=== PATIENT | female | born 1990 | race Caucasian/White ===

== ENCOUNTER 2016-09-15 10:35 | Inpatient (IN) | payer BC ==
[~2016-09-15] VITALS: Ht 162.6 cm; Wt 55.0 kg
[2016-09-15] VITALS (20 sets, daily range): BP systolic 93–111; BP diastolic 45–65; PULSE 72–94; RESP 14–23; TEMP 98.6
[2016-09-15] MEDS ORDERED: SOD CHLORIDE 0.9% 1,000 ML IV STA (10:57)
[2016-09-15] MEDS ORDERED: DIPHENHYDRAMINE 50 MG INJ IV ONE (11:30)
[2016-09-15] MEDS ORDERED: METOCLOPRAMIDE 10 MG INJ IV ONE (11:30)
[2016-09-15 11:31] LABS: ADD SCAN DIFF NO
[2016-09-15 11:34] LABS: ABNORMAL IP MESSAGE 1; ADD UMIC YES; BASOPHILS % 0.1 % (0.0-2.0); HEMATOCRIT 19.8 % (37.0-47.0); LYMPHOCYTES # 1.7 10^3/ul (0.8-2.9); LYMPHOCYTES % 11.4 % (15.0-51.0); MEAN CORPUSCULAR HEMOGLOBIN 29.4 pg (29.0-33.0); MEAN CORPUSCULAR HGB CONC 32.3 g/dl (32.0-37.0); MEAN CORPUSCULAR VOLUME 90.8 fl (82.0-101.0); MEAN PLATELET VOLUME 9.2 fl (7.4-10.4); MONOCYTE # 0.4 10^3/ul (0.3-0.9); MONOCYTES % 2.7 % (0.0-11.0); NEUTROPHIL # 12.1 10^3/ul (1.6-7.5); NEUTROPHILS % 83.2 % (39.0-77.0); NUCLEATED RED BLOOD CELLS% 0.1 /100WBC (0.0-0.0); PLATELET COUNT 315 10^3/UL (140-415); RED BLOOD COUNT 2.18 10^6/ul (4.20-5.40); URINE BILIRUBIN (Dip) NEGATIVE (NEGATIVE); URINE BLOOD (Dip) 3+ (NEGATIVE); URINE COLOR DK. BROWN (YELLOW); URINE KETONES (Dip) TRACE (NEGATIVE); URINE LEUKOCYTE ESTERASE (Dip) 2+ (NEGATIVE); URINE NITRITE (Dip) POSITIVE (NEGATIVE); URINE TOTAL PROTEIN (Dip) 4+ (NEGATIVE); URINE UROBILINOGEN (Dip) 2.0 E.U./dL (0.1-1.0); WHITE BLOOD COUNT 14.6 10^3/ul (4.8-10.8)
[2016-09-15 11:45] LABS: ALBUMIN 3.7 g/dl (3.3-4.9); CHLORIDE 106 mmol/L (97-110); POTASSIUM 3.2 mmol/L (3.5-5.1); SODIUM 140 mmol/L (135-144)
[2016-09-15 11:47] LABS: ANION GAP 12 (8-16); BILIRUBIN,INDIRECT 0.1 mg/dl (0-1.1); BILIRUBIN,TOTAL 0.1 mg/dl (0.2-1.3); CARBON DIOXIDE 25 mmol/L (21-31); CREATININE 0.54 mg/dl (0.44-1.00)
[2016-09-15 11:48] LABS: ALANINE AMINOTRANSFERASE 18 IU/L (13-69); ALBUMIN/GLOBULIN RATIO 1.23; ALKALINE PHOSPHATASE 50 IU/L (42-121); ASPARTATE AMINO TRANSFERASE 19 IU/L (15-46); BLOOD UREA NITROGEN 10 mg/dl (7-20); CALCIUM 8.6 mg/dl (8.4-10.2); GLUCOSE 133 mg/dl (70-220); HEMOGLOBIN 6.4 g/dl (12.0-16.0); TOTAL PROTEIN 6.7 g/dl (6.1-8.1)
[2016-09-15 11:50] LABS: INR 1.06; PARTIAL THROMBOPLASTIN TIME 22.7 Sec (25.0-35.0); PROTIME 13.8 Sec (12.2-14.2); PT RATIO 1.1
[2016-09-15] MEDS ORDERED: SOD CHLORIDE 0.9% 250 ML IV ONE (11:50)
[2016-09-15 12:07] LABS: TROPONIN-I < 0.012 ng/ml (0.00-0.12)
[2016-09-15 12:41] LABS: BACTERIA,URINE FEW; URINE RBCS >200 /HPF (0)
[2016-09-15] MEDS ORDERED: CEFTRIAXONE 1 GM/50 ML (PMX) 50 ML IVPB ONE (13:30)
[2016-09-15] MEDS ORDERED: ONDANSETRON 4 MG INJ IV PRN ×4 (14:00→23:00)
[2016-09-15] MEDS ORDERED: ACETAMINOPHEN 325 MG TAB PO PRN ×3 (14:00→23:00)
--- NOTE | 2016-09-15 14:16 | RADRPT ---
PROCEDURE: US Pelvis CLINICAL INDICATION: Heavy vaginal bleeding, several weeks ago TECHNIQUE: Multiple sonographic images of the pelvis were obtained utilizing a transabdominal and endovaginal technique. The images were reviewed on a PACS workstation. COMPARISON: None. LMP: 06/27/2016 FINDINGS: The uterus measures 10.0 x 4.5 x 5.8 cm. Mild free fluid with debris is noted in the endocervical c anal. The endometrium itself is heterogeneous and there is a focus of increased vascularity within t he endometrium at the posterior aspect of the fundal apex which is suspicious for retained products of conception. The right ovary measures 3.1 x 1.2 x 1.8 cm. The left ovary measures 2.6 x 1.4 x 1.5 cm. There is no rmal vascular flow in both ovaries. There is a 1.6 cm complex cystic lesion with low level internal echoes, thick jacques, and prominent p eripheral vascular flow in the right ovary which is likely a hemorrhagic or corpus luteal cyst. No significant pelvic free fluid is identified. IMPRESSION: Heterogeneity of the endometrium as well as a focus of increased vascularity within it at the fundal apex which is suspicious for retained products of conception. 1.6 cm complex cystic lesion in the right ovary is likely a hemorrhagic or corpus luteal cyst. These findings were discussed with Dr. Geoffrey Wise over the phone on 09/15/2016 at 14:14 hours . RPTAT: EE Physician Lindy Date Time Electronically viewed and signed by Physician Lindy on 09/15/2016 14:16 /
--- NOTE | 2016-09-15 14:45 | ERD ---
ER Documentation Chief Complaint Date/Time DATE: 09/15/16 TIME: 14:35 Chief Complaint heavy vaginal bleeding x 2weeks,headache,low hemoglobin 6.4 sent by pmd HPI 26-year-old female presents for had vaginal bleeding for 2 weeks. She had taken a pill to terminate a at 9 weeks and since then has had heavy bleeding and passage of clots.. She has not had much bleeding today and is improved. Also has generalized weakness and is much more tired than usual Seen primary care doctor and laboratory with hemoglobin of 6.4. Does complain of a headache this been for the last couple of days with no trauma. Came on gradually and got worse. Mild lower abdominal discomfort. ROS All systems reviewed and are negative except as per history of present illness. Medications Home Meds No Active Prescriptions or Reported Meds Allergies Allergies: Coded Allergies: No Known Allergy (Unverified , 09/15/16) PMhx/Soc History of Surgery: Yes (tonsils) Anesthesia Reaction: No Hx Neurological Disorder: No Hx Respiratory Disorders: No Hx Cardiac Disorders: No Hx Psychiatric Problems: No Hx Miscellaneous Medical Probl: No Hx Alcohol Use: No Hx Substance Use: No Hx Tobacco Use: No Smoking Status: Never smoker Physical Exam Vitals Vital Signs Date Time Temp Pulse Resp B/P Pulse Ox O2 Delivery O2 Flow Rate FiO2 09/15/16 12:34 88 14 99/55 100 Room Air 09/15/16 10:38 98.1 119 18 118/56 98 Physical Exam Const: [] Mild distress Head: Atraumatic Eyes: Normal Conjunctiva ENT: Normal External Ears, Nose and Mouth. Neck: Full range of motion..~ No meningismus. Resp: Clear to auscultation bilaterally Cardio: Regular tachycardia, no murmurs Abd: Soft, very mild Sarubbi tenderness without guarding or rebound, non distended. Normal bowel sounds Skin: No petechiae or rashes Back: No midline or flank tenderness Ext: No cyanosis, or edema Neur: Awake and alert and oriented 3, no focal deficits Psych: Normal Mood and Affect Result Diagram: 09/15/16 1115 09/15/16 1115 Results 24 hrs Laboratory Tests Test 09/15/16 11:15 White Blood Count 14.610^3/ul Red Blood Count 2.1810^6/ul Hemoglobin 6.4g/dl Hematocrit 19.8% Mean Corpuscular Volume 90.8fl Mean Corpuscular Hemoglobin 29.4pg Mean Corpuscular Hemoglobin Concent 32.3g/dl Red Cell Distribution Width 13.0% Platelet Count 00142^3/UL Mean Platelet Volume 9.2fl Neutrophils % 83.2% Lymphocytes % 11.4% Monocytes % 2.7% Eosinophils % 0.0% Basophils % 0.1% Nucleated Red Blood Cells % 0.1/100WBC Neutrophils # 12.110^3/ul Lymphocytes # 1.710^3/ul Monocytes # 0.410^3/ul Eosinophils # 0.010^3/ul Basophils # 0.010^3/ul Nucleated Red Blood Cells # 0.010^3/ul Prothrombin Time 13.8Sec Prothrombin Time Ratio 1.1 INR International Normalized Ratio 1.06 Activated Partial Thromboplast Time 22.7Sec Urine Color DK. BROWN Urine Clarity CLEAR Urine pH 5.5 Urine Specific [place] 1.025 Urine Ketones TRACE Urine Nitrite POSITIVE Urine Bilirubin NEGATIVE Urine Urobilinogen 2.0 E.U./dL Urine Leukocyte Esterase 2+ Urine Microscopic RBC >200/HPF Urine Microscopic WBC 10-25/HPF Urine Epithelial Cells FEW Urine Bacteria FEW Urine Hemoglobin 3+ Urine Glucose 0.25%% Urine Total Protein 4+ Sodium Level 140mmol/L Potassium Level 3.2mmol/L Chloride Level 106mmol/L Carbon Dioxide Level 25mmol/L Anion Gap 12 Blood Urea Nitrogen 10mg/dl Creatinine 0.54mg/dl Glucose Level 133mg/dl Calcium Level 8.6mg/dl Total Bilirubin 0.1mg/dl Direct Bilirubin 0.00mg/dl Indirect Bilirubin 0.1mg/dl Aspartate Amino Transf (AST/SGOT) 19IU/L Alanine Aminotransferase (ALT/SGPT) 18IU/L Alkaline Phosphatase 50IU/L Troponin I < 0.012ng/ml Total Protein 6.7g/dl Albumin 3.7g/dl Globulin 3.00g/dl Albumin/Globulin Ratio 1.23 Current Medications Medications (Trade) Dose Ordered Sig/Marylou Route PRN Reason Start Time Stop Time Status Last Admin Dose Admin Sodium Chloride (NS) 1,000 ml @ 1,000 mls/hr Q1H STAT IV 09/15/16 10:57 09/15/16 11:56 DC 09/15/16 11:43 Diphenhydramine HCl (Benadryl) 12.5 mg ONCE ONCE IV 09/15/16 11:30 09/15/16 11:31 DC 09/15/16 11:43 Metoclopramide HCl 10 mg 10 mg ONCE ONCE IV 09/15/16 11:30 09/15/16 11:31 DC 09/15/16 11:43 Sodium Chloride 250 ml @ 0 mls/hr Q0M ONCE IV 09/15/16 11:50 09/15/16 11:52 DC Ceftriaxone Sodium (Rocephin) 50 ml @ 100 mls/hr ONCE ONCE IVPB 09/15/16 13:30 09/15/16 13:59 DC 09/15/16 13:58 Ondansetron HCl (Zofran Inj) 4 mg BRIDGE ORDER PRN IV NAUSEA AND/OR VOMITING 09/15/16 14:00 09/16/16 13:59 Acetaminophen (Tylenol Tab) 650 mg ER BRIDGE PRN PO MILD PAIN/FEVER 09/15/16 14:00 09/16/16 13:59 Procedures/MDM Severe anemia secondary to vaginal bleeding with retained product of conception. She was given a liter of normal saline. I ordered 2 units of packed red blood cells and transfusion was started in the emergency room. Patient's heart rate improved she had to feel better. Also found to have a urinary tract infection. 1 g of Rocephin was given. Patient mild hypokalemia. Unable to give by mouth potassium because of likely impending procedure, hypokalemia is very mild in the neck are negative IV potassium at this time and healthy young female. Spoke with Dr. Puckett will be getting the patient to medical surgical floor. I also spoke with Dr. Irby, freight broker, regarding retained products of conception severe anemia secondary to vaginal bleeding. She is going to see the patient. EKG interpretation: Normal sinus rhythm rate of 100, normal axis, no ST-T wave changes concerning for acute ischemia, normal intervals journeyman glazier interpretation: Sinus tachycardia followed by normal sinus rhythm after fluid and blood product administration Pelvic ultrasound interpretation: Small focus of retained products of conception. Critical care time 39 minutes: This includes management of severe anemia with continued blood loss, and stable vital signs, careful fluid administration, blood product administration, multiple is patient's bedside to reassess status before and after blood product administration, discussion with freight broker, discussion with admitting doctor, discussion with patient and significant other , chart review. This does not include any billable procedures Departure Diagnosis: Primary Impression: Severe anemia Additional Impressions: Symptomatic anemia Blood loss anemia Vaginal bleeding Retained products of conception Urinary tract infection Condition: Serious MARS MACIEL DO Sep 15, 2016 14:45
[2016-09-15] MEDS ORDERED: POTASSIUM CHLORIDE (SR) 20 MEQ TAB PO STA (15:52)
[2016-09-15] MEDS ORDERED: DOCUSATE SODIUM 100 MG CAP PO PRN (16:00)
[2016-09-15] MEDS ORDERED: NACL 0.9% 3 ML SYG IV SCH (16:00)
[2016-09-15] MEDS ORDERED: HYDROCODONE/APAP (5/325) TAB PO PRN ×2 (16:30→23:00)
[2016-09-15] MEDS ORDERED: 1/2 NS + KCL 20 MEQ 1,000 ML IV SCH (16:30)
--- NOTE | 2016-09-15 17:27 | CONS ---
Date/Time of Note Date/Time of Note DATE: 09/15/16 TIME: 17:18 Assessment/Plan Assessment/Plan Chief Complaint/Hosp Course 26-year-old female, status post medical termination Currently with symptomatic anemia due to continued heavy vaginal bleeding for the last 2 weeks. Required blood transfusion. She is receiving currently in the ED blood transfusion. She had moderately heavy vaginal bleeding. Ultrasound finding consistent with retained products of conception at the fundus of the uterus. I discussed with the patient regarding D&C. Risk and benefit of D&C including risk of infection, bleeding, damage to surrounding structures including uterine perforation and bowel and bladder and risk of blood transfusion including but not limited to blood borne infection including HIV, hepatitis B and C and transfusion reactions discussed with the patient in detail and informed consent was obtained. Patient desires to proceed. OR and ED was notified. Patient was booked to proceed with D&C in the OR. Will start Methergine IM Keep the patient n.p.o. Doxycycline 100 mg 1 prior to go to the OR Patient currently consented for D&C. all questions were answered to the patient 's best satisfaction Problems: Consultation Date/Type/Reason Admit Date/Time September 15, 2016 at 1550 p.m. Date of Consultation: Sep 15, 2016 Type of Consultation: COSMETIC SALES CONSULTANT Reason for Consultation Evaluation for severe anemia and vaginal bleeding in Hx of Present Illness I was consulted by ED attending to evaluate this pleasant 26-year-old with recent episode of for severe anemia and vaginal bleeding after patient used pills. She is unsure about her LMP. Reports her LMP was sometime in June 2016. Her cycles were regular every 30 days. was initially planned however due to breaking up with her boyfriend she decided to pursue . She had been seen at family planning clinic and was given pills which she took first pill, and a day after she took 4 pills per recommendation by [facility]. She started having heavy vaginal bleeding with passing large clots that continued for the last 2 weeks and significantly worsened since 5 days ago. She eventually contacted the clinic and had been evaluated in the clinic for possible D&C for retained products of conception however due to low hemoglobin that was noted in clinic she was sent to emergency room for blood transfusion and possible D&C. Next Patient reports that her hemoglobin dropped from 8.9-6.4 in her last visit. She feels dizzy and lightheaded. She also reports headache and fatigue. She is currently receiving blood transfusion that has a started in the ED by ED attending. Subjective hx not possible: other (Fair) Constitutional: other (Dizzy and has headache) Eyes: no complaints ENT: no complaints Respiratory: no complaints Cardiovascular: no complaints Gastrointestinal: no complaints Genitourinary: bleeding, other (Bleeding moderate to heavy) Musculoskeletal: no complaints Skin: other (Pale skin and mucosa) Neurologic: no complaints Endocrine: no complaints Lymphatic: no complaints Psychological: nl mood/affect, no complaints Immunologic: no complaints Social History Smoking Status: Never smoker Exam/Review of Systems Vital Signs Vitals Vital Signs Date Time Temp Pulse Resp B/P Pulse Ox O2 Delivery O2 Flow Rate FiO2 09/15/16 16:41 95 17 100/47 100 Room Air 09/15/16 10:38 98.1 Exam Constitutional: alert, oriented, well developed Psych: nl mood/affect, no complaints Head: atraumatic, normocephalic Eyes: EOMI, nl conjunctiva, nl lids, other (Pale mucosa noted) ENMT: nl external ears & nose, nl lips & teeth Neck: supple Respiratory: clear to auscultation, normal air movement Cardiovascular: nl pulses, regular rate and rhythm Gastrointestinal: nl liver, spleen, non-tender, soft Genitourinary - Female: nl adnexae, other (Sterile speculum examination: Patient has moderate to active bleeding, about 75 cc blood seen in the vault with small blood clot. Bimanual examination no uterine tenderness. Cervix at the external office is open and accommodate 1 fingertip. No fullness or tenderness in adnexa.) Musculoskeletal: nl extremities to inspection, nl gait and stance Extremities: normal pulses Neurological: BRANCH CHIEF II-XII intact Skin: nl turgor, other (Paleness of the skin noted) Lymph: nl lymph nodes Results PROCEDURE: US Pelvis CLINICAL INDICATION: Heavy vaginal bleeding, several weeks ago TECHNIQUE: Multiple sonographic images of the pelvis were obtained utilizing a transabdominal and endovaginal technique. The images were reviewed on a PACS workstation. COMPARISON: None. LMP: 06/27/2016 FINDINGS: The uterus measures 10.0 x 4.5 x 5.8 cm. Mild free fluid with debris is noted in the endocervical canal. The endometrium itself is heterogeneous and there is a focus of increased vascularity within the endometrium at the posterior aspect of the fundal apex which is suspicious for retained products of conception. The right ovary measures 3.1 x 1.2 x 1.8 cm. The left ovary measures 2.6 x 1.4 x 1.5 cm. There is normal vascular flow in both ovaries. There is a 1.6 cm complex cystic lesion with low level internal echoes, thick jacques, and prominent peripheral vascular flow in the right ovary which is likely a hemorrhagic or corpus luteal cyst. No significant pelvic free fluid is identified. IMPRESSION: Heterogeneity of the endometrium as well as a focus of increased vascularity within it at the fundal apex which is suspicious for retained products of conception. 1.6 cm complex cystic lesion in the right ovary is likely a hemorrhagic or corpus luteal cyst. These findings were discussed with Dr. Geoffrey Wise over the phone on 2016 at 14:14 hours . Result Diagram: 09/15/16 1115 09/15/16 1115 Results 24 hrs Laboratory Tests Test 09/15/16 11:15 White Blood Count 14.6 H Red Blood Count 2.18 L Hemoglobin 6.4 *L Hematocrit 19.8 L Mean Corpuscular Volume 90.8 Mean Corpuscular Hemoglobin 29.4 Mean Corpuscular Hemoglobin Concent 32.3 Red Cell Distribution Width 13.0 Platelet Count 315 Mean Platelet Volume 9.2 Neutrophils % 83.2 H Lymphocytes % 11.4 L Monocytes % 2.7 Eosinophils % 0.0 Basophils % 0.1 Nucleated Red Blood Cells % 0.1 H Neutrophils # 12.1 H Lymphocytes # 1.7 Monocytes # 0.4 Eosinophils # 0.0 Basophils # 0.0 Nucleated Red Blood Cells # 0.0 Prothrombin Time 13.8 Prothrombin Time Ratio 1.1 INR International Normalized Ratio 1.06 Activated Partial Thromboplast Time 22.7 L Urine Color DK. BROWN Urine Clarity CLEAR Urine pH 5.5 Urine Specific [place] 1.025 Urine Ketones TRACE H Urine Nitrite POSITIVE H Urine Bilirubin NEGATIVE Urine Urobilinogen 2.0 E.U./dL H Urine Leukocyte Esterase 2+ H Urine Microscopic RBC >200 Urine Microscopic WBC 10-25 Urine Epithelial Cells FEW Urine Bacteria FEW Urine Hemoglobin 3+ H Urine Glucose 0.25% H Urine Total Protein 4+ H Sodium Level 140 Potassium Level 3.2 L Chloride Level 106 Carbon Dioxide Level 25 Anion Gap 12 Blood Urea Nitrogen 10 Creatinine 0.54 Glucose Level 133 Calcium Level 8.6 Total Bilirubin 0.1 L Direct Bilirubin 0.00 Indirect Bilirubin 0.1 Aspartate Amino Transf (AST/SGOT) 19 Alanine Aminotransferase (ALT/SGPT) 18 Alkaline Phosphatase 50 Troponin I < 0.012 Total Protein 6.7 Albumin 3.7 Globulin 3.00 Albumin/Globulin Ratio 1.23 Beta HCG, Quantitative 381.5 Medications Medications Current Medications Ondansetron HCl (Zofran Inj) 4 mg Q6H PRN IV NAUSEA AND/OR VOMITING; Start at 16:00 Acetaminophen (Tylenol Tab) 650 mg Q6H PRN PO PAIN LEVEL 1-3 OR FEVER; Start at 16:00 Docusate Sodium 100 mg 100 mg Q12H PRN PO CONSTIPATION; Start 09/15/16 at 16:00 Ceftriaxone Sodium (Rocephin) 50 ml @ 100 mls/hr Q24H IVPB ; Start 09/16/16 at 14:00 Acetaminophen/ Hydrocodone Bitart 1 tab 1 tab Q4H PRN PO PAIN LEVEL 4-6; Start 09/15/16 at 16:30 Potassium Chloride/Sodium Chloride (1/2 NS + KCl 20 Meq) 1,000 ml @ 75 mls/hr [id number] IV ; Start 09/15/16 at 16:30 ALLEY MEDINA MD Sep 15, 2016 17:26
[2016-09-15] MEDS ORDERED: METHYLERGONOVINE 0.2 MG INJ IM ONE (17:30)
[2016-09-15] MEDS ORDERED: DOXYCYCLINE 100 MG in SOD CHLORIDE 0.9% 250 ML IVPB SCH (17:30)
[2016-09-15 18:13] LABS: HEMATOCRIT 17.4 % (37.0-47.0)
[2016-09-15 18:33] LABS: HEMOGLOBIN 5.8 g/dl (12.0-16.0)
[2016-09-15] MEDS ORDERED: MIDAZOLAM 1 MG/ML 2 ML INJ ONE (21:02)
[2016-09-15] MEDS ORDERED: PROPOFOL 20 ML ONE (21:09)
[2016-09-15] MEDS ORDERED: ONDANSETRON 4 MG INJ ONE (21:10)
[2016-09-15] MEDS ORDERED: KETOROLAC 30 MG INJ ONE (21:10)
--- NOTE | 2016-09-15 21:14 | QN ---
Documentation Comment Laborist Signout recieved from Dr. Irby, chart reviewed. Agree with plan for D&C in the setting of likely incomplete Ab s/p medical with symptomatic anemia. R/B/A of planned procedure d/w pt in Pre-op area. Questions answered to patient's satisfaction. Proceed to OR now. DAVID ESCOBAR MD Sep 15, 2016 21:14
[2016-09-15] MEDS ORDERED: HYDROmorphONE (0.2 MG/ML) 10ML SYG IV PRN ×3 (21:30)
[2016-09-15] MEDS ORDERED: METOCLOPRAMIDE 10 MG INJ IV PRN ×2 (21:30→23:00)
[2016-09-15] MEDS ORDERED: DIPHENHYDRAMINE 50 MG INJ IV PRN (21:30)
[2016-09-15] MEDS ORDERED: OXYCODONE/ACETAMINOPHEN (5/325) TAB PO PRN ×2 (21:30)
[2016-09-15] MEDS ORDERED: MEPERIDINE 25 MG INJ IV PRN (21:30)
[2016-09-15] MEDS: MISOPROSTOL 200 MCG TAB PR SCH (21:37)
[2016-09-15] MEDS ORDERED: SILVER NITRATE SWAB ONE (21:56)
--- NOTE | 2016-09-15 23:26 | OPR ---
Date/Time of Note Date/Time of Note DATE: 09/15/16 TIME: 23:17 Operative Report Procedure Date: Sep 15, 2016 Preoperative Diagnosis Incomplete Postoperative Diagnosis Same Operation Performed Dilation and Curettage Surgeon: DAVID BAILEY MD Anesthesia: MAC Anesthesiologist: MARIYA MORENO MD Estimated Blood Loss: 100 - 150 ml's Specimens Uterine currettings with possible retained products of conception Tubes/Drains None Complications None apparent Pt Condition Post Procedure: stable Disposition: PACU Indications Heavy vaginal bleeding with symptomatic anemia 2wks s/p medical of 1st trimester . Ultrasound suggestive of retained products of conception. Operative\Procedure Findings On bimanual exam, mobile 10cm uterus with open cervical os. Active bleeding noted on sterile speculum exam. Procedure Description The patient was brought to the operating room with an IV in place, positioned on the operating room table in supine position and MAC anesthesia was adminstered. She was positioned in Trev stirrups and prepped and draped in the normal sterile fashion. The bladder was emptied using a red bailey catheter for 50ml urine. Misoprostol 400mcg LA was inserted. A weighted speculum was placed in the vaginal vault. The cervix was grasped with a single-toothed tenaculum at the 12 o'clock position and the uterus. The cervical os was dilated thus dilation was not needed. The uterus was evacuated using the electric suction device. A sharp curet was also used to gently scrape the uterus to assess all four quadrants and a gritty texture was appreciated. Currettings were collected on a Telfa pad and handed off the field to be sent to pathology along with the specimen from the suction device. Brisk vaginal bleeding continued appearing to come from immediately proximal to the external cervical os. The tenaculum was removed and the tenaculum sites were noted to be hemostatic. The weighted speculum was also removed and bimanual uterine massage was done with improvement in bleeding. The tenaculum was replaced and bleeding per os had improved but was still noted to be heavier than anticipated. At this point, a sponge stick was placed posterior to the cervix and pressure was applied to the cervix for several minutes with improved bleeding. Bleeding was observed for some time with a consistently small amount of blood per os. The tenaculum was removed and the sites were rendered hemostatic with silver nitrate. Minimal vaginal bleeding per os remained and the speculum was removed. The patient's perineum was cleaned and her legs were brought back down to the full supine position. She was awakened and transported to the recovery room in excellent condition. DAVID BAILEY MD Sep 15, 2016 23:26
[2016-09-15 23:27] LABS: ADD SCAN DIFF NO
[2016-09-15 23:29] LABS: ABNORMAL IP MESSAGE 1; BASOPHILS % 0.1 % (0.0-2.0); EOSINOPHILS # 0.1 10^3/ul (0.0-0.5); EOSINOPHILS % 0.9 % (0.0-7.0); HEMATOCRIT 16.1 % (37.0-47.0); LYMPHOCYTES # 2.5 10^3/ul (0.8-2.9); LYMPHOCYTES % 36.6 % (15.0-51.0); MEAN CORPUSCULAR HEMOGLOBIN 28.9 pg (29.0-33.0); MEAN CORPUSCULAR HGB CONC 33.5 g/dl (32.0-37.0); MEAN CORPUSCULAR VOLUME 86.1 fl (82.0-101.0); MEAN PLATELET VOLUME 8.7 fl (7.4-10.4); MONOCYTE # 0.5 10^3/ul (0.3-0.9); MONOCYTES % 6.6 % (0.0-11.0); NEUTROPHIL # 3.6 10^3/ul (1.6-7.5); NEUTROPHILS % 52.2 % (39.0-77.0); PLATELET COUNT 163 10^3/UL (140-415); RED BLOOD COUNT 1.87 10^6/ul (4.20-5.40); RED CELL DISTRIBUTION WIDTH 15.8 % (11.5-14.5); WHITE BLOOD COUNT 6.9 10^3/ul (4.8-10.8)
[2016-09-15] MEDS ORDERED: DOXYCYCLINE 100 MG TAB PO SCH (23:30)
[2016-09-15 23:40] LABS: HEMOGLOBIN 5.4 g/dl (12.0-16.0)
--- NOTE | 2016-09-15 23:52 | QN ---
Documentation Comment Hgb repeated in PACU and 5.4. Bleeding post-procedure minimal VS currently: HR 83 BP 97/51 Sat 100% on RA Will transfuse 2u PRBC now and repeat CBC after transfusion to assess for appropriate rise. Will also repeat coags at that time. Benadryl and Tylenol ordered pre-transfusion. DAVID ESCOBAR MD Sep 15, 2016 23:52
[2016-09-16] VITALS (13 sets, daily range): BP systolic 90–110; BP diastolic 48–59; PULSE 80–94; RESP 14–21; Ht 162.6 cm; Wt 55.0 kg
[2016-09-16] MEDS ORDERED: DIPHENHYDRAMINE 50 MG INJ IV ONE
[2016-09-16] MEDS ORDERED: ACETAMINOPHEN 325 MG TAB PO ONE
[2016-09-16] MEDS: MISOPROSTOL 200 MCG TAB PR SCH (03:01)
[2016-09-16] MEDS ORDERED: IBUPROFEN 600 MG TAB PO PRN (03:30)
[2016-09-16] MEDS: LACTATED RINGER'S 1,000 ML IV SCH ×2 (05:34→08:57)
[2016-09-16 08:16] LABS: INR 1.16; PARTIAL THROMBOPLASTIN TIME 25.8 Sec (25.0-35.0); PROTIME 14.9 Sec (12.2-14.2); PT RATIO 1.2
--- NOTE | 2016-09-16 08:48 | HP ---
DATE OF ADMISSION: 09/16/2016 TYPE OF CONSULT: BRAIDING MACHINE OPERATOR. CHIEF COMPLAINT: Vaginal bleeding. HISTORY OF PRESENT ILLNESS: This is a pleasant 26-year-old female who had a termination of pregnanc y 2 weeks ago at [facility] and has been having off and on vaginal bleeding for the past 2 weeks with worsening and increased severity of the bleeding for the past several days. The patient was se en and evaluated by the [facility] and was placed on iron supplementation and she was noted to be severely anemic; therefore was sent to [facility] where she was found to have a h emoglobin of 6.5, hematocrit 19.8, platelets of 14.6. The patient was typed and crossed and transf used 2 units of packed red blood cells. BRAIDING MACHINE OPERATOR was consulted from the course of ____. At this kathleen e, the patient denies having any headache, dizziness, lightheadedness. No change in visual acuity, diplopia, photophobia. No abdominal pain, nausea, vomiting, diarrhea. No chest pain, no shortness of breath, no change in the color of stool. Positive for vaginal bleeding, no neck pain, no restric josemanuel range of motion upper and lower extremities. No recent sick contact, no recent travel. PAST MEDICAL HISTORY: None. PAST SURGICAL HISTORY: None. SOCIAL HISTORY: Negative for smoking, illicit drugs, positive for occasional alcohol. FAMILY HISTORY: Noncontributory. MEDICATIONS: Positive for: 1. Ferrous sulfate. 2. Ibuprofen. ALLERGIES: NO KNOWN DRUG ALLERGIES. REVIEW OF SYSTEMS: As above per HPI, otherwise 12 review of systems was found to be negative. PHYSICAL EXAMINATION: VITAL SIGNS: Temperature 98.1, pulse 88, respiration 14, blood pressure 99/55, oxygen 100% on room air. GENERAL APPEARANCE: The patient is lying in bed comfortably without any distress. She is awake, al ert, oriented. She is able to answer my questions properly. The patient is very pale. EYES AND ENT: Conjunctivae are normal and lids are pale. Extraocular motor is normal. Hearing mague ssly normal. Lips, teeth and gums are normal. Oral mucosa is moist. NECK: Supple. Trachea is midline. No lymphadenopathy. RESPIRATORY: Effort is normal. Clear to auscultation bilaterally. CARDIOVASCULAR: Normal S1, S2. Regular rhythm and rate. No murmur, no bruits, no edema. Peripher al pulses, radial pulses palpable. Cap refill is normal. CHEST: Normal expansion of thorax during inspiration. GASTROINTESTINAL: Abdomen is soft, nontender, not distended. Bowel sounds present. No guarding, n o rebound. GENITOURINARY: Deferred. MUSCULOSKELETAL: Upper and lower extremities within normal limits. Full range of motion, strength 5/5 both upper and lower extremities. NEUROLOGIC: Cranial nerves II through XII are grossly intact. PSYCHIATRIC: Normal judgment and insight. Alert and oriented x3. Mood and affect are normal. LABORATORY WORK AND IMAGING: Sodium 140, potassium 3.2, chloride 103, bicarbonate 25, BUN 10, creat inine 0.54, glucose 133, calcium 8.6. ____ 381.5. LFTs all within normal limits. WBC 14.3, hemogl obin 6.1, hematocrit 19.8. Platelets ____15. Urinalysis positive, nitrite ____, WBCs greater th an 200, WBC 10 to 25. PT 13.8, INR 1.36. ASSESSMENT AND PLAN: 1. Vaginal bleeding. This is likely secondary to ____ ____ and increased vascularity in the ____ of the apex, suspicious for retained products of conception as was evident on pelvic ultra sound. BRAIDING MACHINE OPERATOR has been consulted. Patient will be scheduled for D and C today. Follow up BRAIDING MACHINE OPERATOR r ecommendations. 2. Anemia, secondary to #1. Patient has been typed and crossed for 2 units of packed red blood ce lls. Follow hemoglobin and hematocrit q.8h. Will transfuse if hemoglobin is less than 7.5. 3. Microcytic anemia secondary to #1. Follow up iron panel and treat accordingly. 4. A 1.6 cm complex cystic lesion in the right ovary, likely hemorrhagic or corpus luteal cyst. F ollow ortho recommendations. 5. For deep venous thrombosis prophylaxis, on sequential compression devices. Refrain from using a ny pharmacologic DVT prophylaxis secondary to vaginal bleeding. 6. We will continue to monitor patient closely. Further recommendation, management and treatment a s per clinical course. Dictated By: REMBERTO CRANE MD PN/NTS Conf#: [id number] DID#: [id number]
[2016-09-16 09:09] LABS: ADD SCAN DIFF NO
[2016-09-16 09:10] LABS: BASOPHILS % 0.4 % (0.0-2.0); EOSINOPHILS # 0.1 10^3/ul (0.0-0.5); EOSINOPHILS % 1.1 % (0.0-7.0); HEMATOCRIT 24.1 % (37.0-47.0); HEMOGLOBIN 8.2 g/dl (12.0-16.0); LYMPHOCYTES # 2.3 10^3/ul (0.8-2.9); LYMPHOCYTES % 30.9 % (15.0-51.0); MEAN CORPUSCULAR HEMOGLOBIN 29.7 pg (29.0-33.0); MEAN CORPUSCULAR VOLUME 87.3 fl (82.0-101.0); MEAN PLATELET VOLUME 9.3 fl (7.4-10.4); MONOCYTE # 0.5 10^3/ul (0.3-0.9); MONOCYTES % 7.1 % (0.0-11.0); NEUTROPHIL # 4.3 10^3/ul (1.6-7.5); NEUTROPHILS % 56.8 % (39.0-77.0); NUCLEATED RED BLOOD CELLS% 0.4 /100WBC (0.0-0.0); PLATELET COUNT 189 10^3/UL (140-415); RED BLOOD COUNT 2.76 10^6/ul (4.20-5.40); RED CELL DISTRIBUTION WIDTH 15.2 % (11.5-14.5); WHITE BLOOD COUNT 7.6 10^3/ul (4.8-10.8)
[2016-09-16 09:19] LABS: IRON 99 ug/dl (35-150)
[2016-09-16 09:28] LABS: TOTAL IRON BINDING CAPACITY 222 ug/dl (241-421)
[2016-09-16 09:38] LABS: POTASSIUM 4.1 mmol/L (3.5-5.1)
[2016-09-16 09:40] LABS: CREATININE 0.54 mg/dl (0.44-1.00)
[2016-09-16 09:41] LABS: CALCIUM 7.8 mg/dl (8.4-10.2); MAGNESIUM 1.9 mg/dl (1.7-2.5)
[2016-09-16 13:30] LABS: THYROID STIMULATING HORMONE 2.05 MIU/L (0.465-4.680)
[2016-09-16 13:33] LABS: HEMATOCRIT 25.5 % (37.0-47.0); HEMOGLOBIN 8.7 g/dl (12.0-16.0)
[2016-09-16 13:34] LABS: FERRITIN 36.7 ng/ml (6.2-137.0)
[2016-09-16] MEDS ORDERED: CEFTRIAXONE 1 GM/50 ML (PMX) 50 ML IVPB SCH (14:00)
--- NOTE | 2016-09-16 15:10 | PDOCDIS ---
Discharge Instructions CONDITION Patient Condition: Good HOME CARE INSTRUCTIONS: Special Diet: regular ACTIVITY: Activity Restrictions: Slowly Increase Activity Rest between Activity Avoid heavy lifting FOLLOW UP/APPOINTMENTS Appointments Follow-up with primary in 1-2 weeks CBC in 1 week REMBERTO CRANE MD Sep 16, 2016 15:10
[2016-09-16] MEDS ORDERED: ASC500 PO (15:11)
[2016-09-16] MEDS ORDERED: CIPR500T4 PO (15:11)
[2016-09-16] MEDS ORDERED: IBUP200C PO (15:11)
[2016-09-16] MEDS ORDERED: FER325 PO (15:11)
--- NOTE | 2016-09-16 15:48 | DS ---
DATE OF ADMISSION: 09/16/2016 DATE OF DISCHARGE: 09/16/2016 CONSULTANTS: SHOE SPRAYER. PROCEDURE: D and C by Dr. Angeline Talavera. DISCHARGE DIAGNOSES: 1. Heavy vaginal bleeding. 2. Symptomatic anemia. 3. Retained products of conception. 4. Urinary tract infection. MEDICATIONS: 1. Vitamin C. 2. Cipro. 3. Ferrous sulfate. 4. Ibuprofen. ALLERGIES: PPD. LABORATORY: WBC 7.3, hemoglobin 8.7, hematocrit 25.5, platelets 189. Sodium 139, potassium 4.1, ch loride 112, bicarbonate 21, BUN 8, creatinine 0.54, glucose 94, calcium 7.8, magnesium 1.9, total ir on 99, TIBC 222, oxygen 45. Ferritin 36.7. TSH 2.050. Beta hCG 381.5. HOSPITAL COURSE: This is a pleasant 26-year-old female who had a termination of 2 weeks a go at [facility] and has been having off and on vaginal bleeding for the past 2 weeks and increa sed severity of the bleeding x2 days. The patient was evaluated at the clinic and was placed on iro n supplementation, was noted to have severe anemia, was sent to [facility] where s he was found to have hemoglobin 6.5, hematocrit 19.8. Platelets of 146. The patient was typed and crossed and transfused 2 units of packed red blood cells. SHOE SPRAYER was consulted. Vaginal ultrasound was obtained, which showed heterogenicity of the endometrial as well as focus ____ within the luis antonio l apex, suspicious for retained products of conception. Patient was made n.p.o., IV fluid, pain med ication, was taken to OR for D and C. The patient tolerated procedure well. Patient's hemoglobin a nd hematocrit have been stable, status post transfusion and has been increasing. She has been place d on iron supplementation and also was found to have urinary tract infection, has been placed on Hugh ephin and at this time, the patient will be discharged on ciprofloxacin. The patient's vitals have been stable with temperature 98.2, pulse 81, respiration 18, blood pressure 93/54, oxygen 99% in keyonna m air. Patient denies any fever, chills, weight gain, weight loss, anorexia. No chest pain, palpit ations, edema, orthopnea, no abdominal pain. Minimal vaginal bleeding at this time post D and C. A t this time waiting for evaluation by SHOE SPRAYER. DISCHARGE: The patient will be discharged home after the patient is cleared by CARBU[employer]OR REBUILDER standpoint. Dictated By: REMBERTO CRANE MD PN/NTS Conf#: [id number] DID#: [id number]
--- NOTE | 2016-09-16 17:07 | CONS ---
Date/Time of Note Date/Time of Note DATE: 09/16/16 TIME: 16:56 Consultation Date/Type/Reason Admit Date/Time September 16, 2016 Hospital consult Reason for Consultation This patient is a 26 years old 1 para 0 whose last menstrual period was on June 25, 2016 She was and went to a clinic for medical while about 9weeks . A few days later started having vaginal bleeding which became heavy. She came to the hospital yesterday in emergency room where .she was passing clots . In the clinic the diagnosis of retained products of conception was made which was confirmed on ultrasound study Her hemoglobin was 6.4 with hematocrit of 19.8 when came to ER. she was given 2 units of blood and was prepared for D&C Despite giving 2 units of blood her hemoglobin dropped to 5.8 with hematocrit of 17.4 ;. Subsequently she underwent a dilatation and curettage and the product of conception was removed. Bleeding slowed down. On repeat hemoglobin at 7:00 in the morning reported as 8.2 with hematocrit of 21 . When I saw her this afternoon she was stable very little bleeding vital signs were stable, . On examination her ear nose throat appears to be normal ,neck was normal, chest was clear,abdomen was soft ,she was having very little amount of vaginal bleeding. Patient placed on iron and folic acid Laboratory Tests Test 09/15/16 18:05 09/15/16 23:17 09/16/16 06:35 09/16/16 06:55 Hemoglobin 5.8g/dl 5.4g/dl 8.2g/dl Hematocrit 17.4% 16.1% 24.1% White Blood Count 6.910^3/ul 7.610^3/ul Red Blood Count 1.8710^6/ul 2.7610^6/ul Mean Corpuscular Volume 86.1fl 87.3fl Mean Corpuscular Hemoglobin 28.9pg 29.7pg Mean Corpuscular Hemoglobin Concent 33.5g/dl 34.0g/dl Red Cell Distribution Width 15.8% 15.2% Platelet Count 49878^3/UL 99525^3/UL Mean Platelet Volume 8.7fl 9.3fl Neutrophils % 52.2% 56.8% Lymphocytes % 36.6% 30.9% Monocytes % 6.6% 7.1% Eosinophils % 0.9% 1.1% Basophils % 0.1% 0.4% Nucleated Red Blood Cells % 0.0/100WBC 0.4/100WBC Neutrophils # 3.610^3/ul 4.310^3/ul Lymphocytes # 2.510^3/ul 2.310^3/ul Monocytes # 0.510^3/ul 0.510^3/ul Eosinophils # 0.110^3/ul 0.110^3/ul Basophils # 0.010^3/ul 0.010^3/ul Nucleated Red Blood Cells # 0.010^3/ul 0.010^3/ul Prothrombin Time 14.9Sec Prothrombin Time Ratio 1.2 INR International Normalized Ratio 1.16 Activated Partial Thromboplast Time 25.8Sec Sodium Level 139mmol/L Potassium Level 4.1mmol/L Chloride Level 112mmol/L Carbon Dioxide Level 21mmol/L Anion Gap 10 Blood Urea Nitrogen 8mg/dl Creatinine 0.54mg/dl Glucose Level 94mg/dl Calcium Level 7.8mg/dl Magnesium Level 1.9mg/dl Iron Level 99ug/dl Total Iron Binding Capacity 222ug/dl Percent Iron Saturation 45% SAT Ferritin 36.7ng/ml Thyroid Stimulating Hormone (TSH) 2.050MIU/L Serum HCG, Qualitative POSITIVE Test 09/16/16 13:00 Hemoglobin 8.7g/dl Hematocrit 25.5% Current Medications Medications (Trade) Dose Ordered Sig/Marylou Route PRN Reason Start Time Stop Time Status Last Admin Dose Admin Sodium Chloride (NS) 1,000 ml @ 1,000 mls/hr Q1H STAT IV 09/15/16 10:57 09/15/16 11:56 DC 09/15/16 11:43 1,000 MLS/HR Diphenhydramine HCl (Benadryl) 12.5 mg ONCE ONCE IV 09/15/16 11:30 09/15/16 11:31 DC 09/15/16 11:43 12.5 MG Metoclopramide HCl 10 mg 10 mg ONCE ONCE IV 09/15/16 11:30 09/15/16 11:31 DC 09/15/16 11:43 10 MG Sodium Chloride 250 ml @ 0 mls/hr Q0M ONCE IV 09/15/16 11:50 09/15/16 11:52 DC Ceftriaxone Sodium (Rocephin) 50 ml @ 100 mls/hr ONCE ONCE IVPB 09/15/16 13:30 09/15/16 13:59 DC 09/15/16 13:58 100 MLS/HR Ondansetron HCl (Zofran Inj) 4 mg BRIDGE ORDER PRN IV NAUSEA AND/OR VOMITING 09/15/16 14:00 09/15/16 16:23 DC Acetaminophen (Tylenol Tab) 650 mg ER BRIDGE PRN PO MILD PAIN/FEVER 09/15/16 14:00 09/15/16 16:23 DC IV Flush (NS 3 ml) 3 ml PER PROTOCOL IV 09/15/16 16:00 Ondansetron HCl (Zofran Inj) 4 mg Q6H PRN IV NAUSEA AND/OR VOMITING 09/15/16 16:00 09/15/16 23:17 DC Acetaminophen (Tylenol Tab) 650 mg Q6H PRN PO PAIN LEVEL 1-3 OR FEVER 09/15/16 16:00 Docusate Sodium 100 mg 100 mg Q12H PRN PO CONSTIPATION 09/15/16 16:00 Ceftriaxone Sodium (Rocephin) 50 ml @ 100 mls/hr Q24H IVPB 09/16/16 14:00 09/16/16 15:11 100 MLS/HR Potassium Chloride (Klor-Con 20) 40 meq ONCE STAT PO 09/15/16 15:52 09/15/16 15:58 DC 09/15/16 19:19 40 MEQ Acetaminophen/ Hydrocodone Bitart 1 tab 1 tab Q4H PRN PO PAIN LEVEL 4-6 09/15/16 16:30 Potassium Chloride/Sodium Chloride (1/2 NS + KCl 20 Meq) 1,000 ml @ 75 mls/hr [id number] IV 09/15/16 16:30 09/16/16 02:23 DC Methylergonovine Maleate 0.2 mg 0.2 mg ONCE ONCE IM 09/15/16 17:30 09/15/16 17:31 DC 09/15/16 19:19 0.2 MG Doxycycline Hyclate/Sodium Chloride (Vibramycin/NS) 250 ml @ 250 mls/hr ONCE IVPB 09/15/16 17:30 09/15/16 23:00 DC 09/15/16 17:30 250 MLS/HR Midazolam HCl (Versed) 2 mg STK-MED ONCE .ROUTE 09/15/16 21:02 09/15/16 21:03 DC Misoprostol (Cytotec) 400 mcg ONCE NM 09/15/16 21:30 09/15/16 23:00 DC 09/15/16 21:37 400 MCG Hydromorphone HCl (Dilaudid (Rec)) 0.2 mg PACU ORDER PRN IV MILD PAIN LEVEL 1-3 09/15/16 21:30 09/16/16 02:00 DC Hydromorphone HCl (Dilaudid (Rec)) 0.4 mg PACU ORDER PRN IV MODERATE PAIN LEVEL 4-6 09/15/16 21:30 09/16/16 02:00 DC Hydromorphone HCl (Dilaudid (Rec)) 0.6 mg PACU ORDER PRN IV SEVERE PAIN LEVEL 7-10 09/15/16 21:30 09/16/16 02:00 DC Oxycodone/ Acetaminophen (Percocet (5/ 325)) 1 tab PACU ORDER PRN PO PAIN LEVEL 1-5 09/15/16 21:30 09/16/16 02:00 DC Oxycodone/ Acetaminophen (Percocet (5/ 325)) 2 tab PACU ORDER PRN PO PAIN LEVEL 6-10 09/15/16 21:30 09/16/16 02:00 DC Ondansetron HCl (Zofran Inj) 4 mg PACU ORDER PRN IV NAUSEA AND/OR VOMITING 09/15/16 21:30 09/16/16 02:00 DC Metoclopramide HCl (Reglan) 10 mg PACU ORDER PRN IV NAUSEA AND/OR VOMITING 09/15/16 21:30 09/16/16 02:00 DC Meperidine HCl (Demerol) 25 mg PACU ORDER PRN IV POST-OP RIGORS 09/15/16 21:30 09/16/16 02:00 DC Diphenhydramine HCl (Benadryl) 25 mg PACU ORDER PRN IV PRURITUS 09/15/16 21:30 09/16/16 02:00 DC Silver Nitrate 1 stick 1 stick STK-MED ONCE .ROUTE 09/15/16 21:56 09/15/16 21:57 DC 09/15/16 21:58 1 STICK Lactated Ringer's (Lr) 1,000 ml @ 100 mls/hr Q10H IV 09/15/16 22:57 09/16/16 05:34 100 MLS/HR Acetaminophen (Tylenol Tab) 650 mg Q4H PRN PO PAIN LEVEL 1-5 09/15/16 23:00 Ibuprofen (Motrin) 600 mg Q6 PRN PO PAIN AND OR ELEVATED TEMP 09/16/16 03:30 Acetaminophen/ Hydrocodone Bitart ([place] (5/325)) 1 tab Q4H PRN PO PAIN LEVEL 6-10 09/15/16 23:00 Ondansetron HCl (Zofran Inj) 4 mg Q6H PRN IV NAUSEA AND/OR VOMITING 09/15/16 23:00 Metoclopramide HCl (Reglan) 10 mg Q6H PRN IV NAUSEA AND/OR VOMITING 09/15/16 23:00 Doxycycline Hyclate (Vibramycin) 200 mg ONCE PO 09/15/16 23:30 09/15/16 23:59 DC 09/16/16 05:35 200 MG Diphenhydramine HCl (Benadryl) 12.5 mg ONCE ONCE IV 09/16/16 00:00 09/16/16 00:29 DC Acetaminophen 650 mg 650 mg ONCE ONCE PO 09/16/16 00:00 09/16/16 00:29 DC Propofol (Diprivan) 20 ml @ ud STK-MED ONCE .ROUTE 09/15/16 21:09 09/16/16 16:02 DC Ondansetron HCl (Zofran Inj) 4 mg STK-MED ONCE .ROUTE 09/15/16 21:10 09/16/16 16:02 DC Ketorolac Tromethamine (Toradol) 30 mg STK-MED ONCE .ROUTE 09/15/16 21:10 09/16/16 16:02 DC Subjective hx not possible: pt non-verbal Constitutional: other (She is stable. No dizziness no tachycardia), No chills, No diaphoresis, No disoriented, No febrile, No improved, No no complaints, No poor po, No requiring IVF, No requiring O2 Eyes: no complaints, No discharge, No other, No pain, No redness, No visual change ENT: no complaints, No bleeding, No congestion, No discharge, No dysphagia, No other, No pain, No sore throat Respiratory: no complaints, No cough, No other, No pain, No pleuritic pain, No shortness of breath, No sputum, No wheezing Cardiovascular: no complaints, other (No tachycardia), No chest pain, No edema, No lightheadedness, No orthopenea, No palpitations, No paroxysmal nocturnal dyspnea Gastrointestinal: no complaints, No blood, No constipation, No decreased appetite, No diarrhea, No flatus, No nausea, No other, No pain, No passing stool, No vomiting Genitourinary: bleeding, other, No discharge, No dysuria, No flank pain, No hematuria, No no complaints Musculoskeletal: no complaints, No back pain, No bone/joint pain, No neck pain, No other, No restricted range of motion, No swelling Skin: other (Pale skin and mucosa), No bruising, No erythema, No laceration, No no complaints, No pruritis, No rash, No skin lesions Neurologic: no complaints, No confusion, No dizziness, No focal-weakness, No headache, No other, No seizure, No syncope Endocrine: no complaints, No dry skin, No other, No polydypsia, No polyuria, No temp intolerance Lymphatic: no complaints Psychological: nl mood/affect, no complaints Immunologic: no complaints Social History Smoking Status: Never smoker Exam/Review of Systems Vital Signs Vitals Vital Signs Date Time Temp Pulse Resp B/P Pulse Ox O2 Delivery O2 Flow Rate FiO2 09/16/16 16:08 98.3 81 20 95/51 98 09/16/16 04:00 Room Air 09/16/16 00:37 2.0 Intake and Output 09/15/16 09/15/16 09/16/16 15:00 23:00 07:00 Intake Total 1050 ml 1050 ml 1000 ml Output Total 200 ml Balance 1050 ml 850 ml 1000 ml Results Result Diagram: 09/16/16 1300 09/16/16 0635 Results 24 hrs Laboratory Tests Test 09/15/16 18:05 09/15/16 23:17 09/16/16 06:35 09/16/16 06:55 Hemoglobin 5.8 *L 5.4 *L 8.2 #L Hematocrit 17.4 L 16.1 L 24.1 #L White Blood Count 6.9 # 7.6 Red Blood Count 1.87 L 2.76 #L Mean Corpuscular Volume 86.1 87.3 Mean Corpuscular Hemoglobin 28.9 L 29.7 Mean Corpuscular Hemoglobin Concent 33.5 34.0 Red Cell Distribution Width 15.8 #H 15.2 H Platelet Count 163 # 189 Mean Platelet Volume 8.7 9.3 Neutrophils % 52.2 56.8 Lymphocytes % 36.6 30.9 Monocytes % 6.6 7.1 Eosinophils % 0.9 1.1 Basophils % 0.1 0.4 Nucleated Red Blood Cells % 0.0 0.4 H Neutrophils # 3.6 4.3 Lymphocytes # 2.5 2.3 Monocytes # 0.5 0.5 Eosinophils # 0.1 0.1 Basophils # 0.0 0.0 Nucleated Red Blood Cells # 0.0 0.0 Prothrombin Time 14.9 H Prothrombin Time Ratio 1.2 INR International Normalized Ratio 1.16 Activated Partial Thromboplast Time 25.8 Sodium Level 139 Potassium Level 4.1 Chloride Level 112 H Carbon Dioxide Level 21 Anion Gap 10 Blood Urea Nitrogen 8 Creatinine 0.54 Glucose Level 94 Calcium Level 7.8 L Magnesium Level 1.9 Iron Level 99 Total Iron Binding Capacity 222 L Percent Iron Saturation 45 Ferritin 36.7 Thyroid Stimulating Hormone (TSH) 2.050 Serum HCG, Qualitative POSITIVE Test 09/16/16 13:00 Hemoglobin 8.7 L Hematocrit 25.5 L Medications Medications Current Medications Acetaminophen (Tylenol Tab) 650 mg Q6H PRN PO PAIN LEVEL 1-3 OR FEVER; Start at 16:00 Docusate Sodium 100 mg 100 mg Q12H PRN PO CONSTIPATION; Start 09/15/16 at 16:00 Ceftriaxone Sodium (Rocephin) 50 ml @ 100 mls/hr Q24H IVPB Last administered on 09/16/16 15:11; Admin Dose 100 MLS/HR; Start 09/16/16 at 14:00 Acetaminophen/ Hydrocodone Bitart 1 tab 1 tab Q4H PRN PO PAIN LEVEL 4-6; Start 09/15/16 at 16:30 Lactated Ringer's (Lr) 1,000 ml @ 100 mls/hr Q10H IV Last administered on 09/16 05:34; Admin Dose 100 MLS/HR; Start 09/15/16 at 22:57 Acetaminophen (Tylenol Tab) 650 mg Q4H PRN PO PAIN LEVEL 1-5; Start 09/15/16 at 23:00 Ibuprofen (Motrin) 600 mg Q6 PRN PO PAIN AND OR ELEVATED TEMP; Start 09/16/16 at 03:30 Acetaminophen/ Hydrocodone Bitart ([place] (5/325)) 1 tab Q4H PRN PO PAIN LEVEL 6 -10; Start 09/15/16 at 23:00 Ondansetron HCl (Zofran Inj) 4 mg Q6H PRN IV NAUSEA AND/OR VOMITING; Start at 23:00 Metoclopramide HCl (Reglan) 10 mg Q6H PRN IV NAUSEA AND/OR VOMITING; Start at 23:00 JOHAN RUIZ MD Sep 16, 2016 17:07 JOHAN RUIZ MD Sep 16, 2016 17:07
== END 2016-09-16 18:13 | disposition home or self-care (01) | DRG 770 ==
LOC: E/R 10:35 → MS4 20:44 → SDS 20:44 → MS4 09-16 00:35
PROVIDERS: ADMIT Obstetrics & Gynecology; ATTEND Obstetrics & Gynecology Obstetrics
PROC: 30233N1 Transfusion of Nonautologous Red Blood Cells into Peripheral Vein, Percutaneous Approach (ICD-10-PCS; 2016-09-15)
PROC: 10D17ZZ Extraction of Products of Conception, Retained, Via Natural or Artificial Opening (ICD-10-PCS; principal; 2016-09-16)
DX: O03.1 Delayed or excessive hemorrhage following incomplete spontaneous abortion (principal); D62 Acute posthemorrhagic anemia; N39.0 Urinary tract infection, site not specified; O03.38 Urinary tract infection following incomplete spontaneous abortion
CPT/HCPCS: 36430; 76830; 80048; 80053; 81001; 81003; 82728; 83540; 83735; 84443; 84484; 84702; 84703; 85014; 85018; 85025; 85610; 85730; 86850; 86900; 86901; 86920; 88305; 93005; 96361; 96365; 96366; 96367; 96372; 96375; J0696; J1200; J1885; J2210; J2250; J2405; J2765; J3480; J7030; J7040; J7050; J7120; P9016